=== PATIENT | male | born 1960 | race Caucasian/White ===

== ENCOUNTER 2023-11-29 20:14 | Emergency (ER) | payer OTHER, SELFPAY ==
[2023-11-29] VITALS (11 sets, daily range): BP systolic 106–140; BP diastolic 65–88; PULSE 47–56
[2023-11-29 20:30] LABS: % Basophils 1.1 % (0-2); % Eosinophils 5.5 % (0-6); % Immature Granulocytes 0.3 % (0-0.5); % Lymphocytes 30.3 % (20.5-51.1); % Monocytes 7.7 % (1.7-9.3); % Neutrophils 55.1 % (42.2-75.2); Absolute Basophils 0.1 10^3/uL (0-0.2); Absolute Eosinophils 0.3 10^3/uL (0-0.7); Absolute Lymphocytes 1.9 10^3/uL (1.2-3.4); Absolute Monocytes 0.5 10^3/uL (0.1-0.6); Absolute Neutrophils 3.4 10^3/uL (1.4-6.5); Hematocrit 36.4 % (39.0-52.0); Hemoglobin 11.6 g/dL (13.0-18.0); Mean Corp Hgb Conc. 31.9 g/dL (33.0-37.0); Mean Corpuscular Hgb 24.6 pg (27.0-31.0); Mean Corpuscular Volume 77.3 fL (80.0-94.0); Mean Platelet Volume 10.7 fL (7.4-10.4); Nucleated Red Blood Cells % 0 % (-); Platelet Count 219 10^3/uL (130-400); Red Blood Cell Count 4.71 10^6/uL (4.70-6.10); Red Cell Dist. Width 13.7 % (11.5-14.5); White Blood Cell Count 6.2 10^3/uL (4.8-10.8)
[2023-11-29 20:49] LABS: ALT (SGPT) 43 U/L (0-50); AST (SGOT) 32 U/L (17-59); Albumin 3.6 g/dl (3.5-5.0); Alkaline Phosphatase 50 U/L (38-126); Blood Urea Nitrogen 22 mg/dl (9-20); Calcium 8.8 mg/dl (8.4-10.2); Carbon Dioxide 26 mmol/L (22-30); Chloride 107 mmol/L (98-107); Estimated Creatinine Clearance 103 ml/min; Glucose 128 mg/dl (70-99); Potassium 4.2 mmol/L (3.5-5.1); Sodium 138 mmol/L (135-145); Total Bilirubin 0.7 mg/dl (0.2-1.3); Total Protein 5.8 g/dl (6.3-8.2); eGFR > 60.00
[2023-11-29 20:56] LABS: Troponin I < 0.012 ng/ml
--- NOTE | 2023-11-29 21:09 | ED.GENMED ---
History of Present Illness
General
Chief Complaint: Fainting/Passed Out
Source: patient and family ([place])
Exam Limitations: none
Time Seen by Provider: 11/29/23 20:57
History of Present Illness
History of Present Illness:
This is a 63 year old male that comes in by ambulance with c/o syncope. States that he went to watch his daughter in [place] in a cafe and it was hot. State that he was only there about 15-20min and he started to feel dizzy and hot and passed out.
State that he was standing and slowly went to the ground. Denies hitting his head. Daughter states that he was unconscious for seconds and that he was shaking. Daughter also states that he has a history of passing out before. Denies any fever,
chills, chest pain, SOB, abd pain, nausea, vomiting, diarrhea, headache, urinary burning.
Past History
Past History
ED Past Medical History: HTN and Psychiatric (Depression)
ED Past Surgical History: Orthopedic (Radio frequency ablation of Lumbar spine and Cervical spine) and Other (Sinus Surgery, )
Social History
Tobacco: Non-smoker
Alcohol: None
Drug: Marijuana
Personal: Single
Living: alone
Review of Systems
Review of Systems
All Other Systems: ROS reviewed and negative except as documented in HPI and ROS
Constitutional: Reports no symptoms; Denies fever or chills
EENT: Reports no symptoms
Respiratory: Reports no symptoms; Denies cough or trouble breathing
Cardiac: Reports no symptoms; Denies chest pain
ABD/GI: Reports no symptoms; Denies abdominal pain, nausea, vomiting or diarrhea
: Reports no symptoms; Denies dysuria, frequency or urgency
Musculoskeletal: Reports no symptoms
Skin: Reports no symptoms
Neurological: Reports dizzy; Denies headache
Psychiatric: Reports no symptoms
Phy Exam
General Physical Exam
General Presentation: no apparent distress
General age: appears stated age
General Skin: warm and dry
General Habitus: normal
General Mental: alert
General Hydration: dry mucous membranes
ENT Exam
ENT Exam: TM's normal, pharynx normal and neck supple
Eye Exam
Eye Exam: EOMI
Cardiovascular Exam
Cardiovascular Exam: no edema, no murmur, normal peripheral pulses and bradycardia
Pulmonary Exam
Pulmonary Exam: lungs clear, no respiratory distress, no rales, chest non tender, no crackles, no rhonchi, no wheezing and no cough
Gastrointestinal Exam
Gastrointestinal Exam: normal bowel sounds, non tender, soft, no organomegaly, no pulsatile mass and non distended
Musculoskeletal Exam
Musculoskeletal Exam: full ROM and no edema
Skin Exam
Skin Exam: normal color, warm/dry, no rash and no petechia
Psychiatric Exam
Psychiatric Exam: normal mood/affect
Course
Orders/Labs/Results
Orders:
Orders
11/29/23 20:22
Electrocardiogram (*1) Urgent
Reason for Study: Bradycardia / Tachycardia
EKG- Treatment ONCE
11/29/23 20:24
Complete Blood Count/With Diff Urgent
Comprehensive Metabolic Panel Urgent
Troponin I Urgent
11/29/23 21:08
Orthostatic VS- Treatment ONCE
0.9% Sodium Chloride 1000 ml [Nss] 1,000 ml IV BOLUS
Abnormal Lab Results
11/29/23
20:24
Hgb 11.6 L g/dL
(13.0-18.0)
Hct 36.4 L %
(39.0-52.0)
MCV 77.3 L fL
(80.0-94.0)
MCH 24.6 L pg
(27.0-31.0)
MCHC 31.9 L g/dL
(33.0-37.0)
MPV 10.7 H fL
(7.4-10.4)
BUN 22 H mg/dl
(9-20)
Glucose 128 H mg/dl
(70-99)
Total Protein 5.8 L g/dl
(6.3-8.2)
11/29/23 20:24
11/29/23 20:24
H/H slightly low. Anemic, Dehydration. Glucose nonfasting. Total protein low. Troponin <0.012,
Vital Signs
Initial and Last Documented VS:
Initial Vital Signs
Temp Pulse Resp BP
98.7 F 60 18 123/70
11/29/23 20:21 11/29/23 20:21 11/29/23 20:21 11/29/23 20:21
Last Documented Vital Signs
Temp Pulse Resp BP Pulse Ox
98.7 F 49 21 118/69 95
11/29/23 20:21 11/29/23 21:30 11/29/23 21:30 11/29/23 21:24 11/29/23 21:24
MDM/Problems Addressed
Differential Diagnosis Includes:
Dehydration. Orthostatic hypotension
MDM/Problems Addressed:
This is a 63 year old male that comes in with c/o syncope. Staes that he was in a cafe and it was hot and be became dizzy. States that he was standing and slowly fell to the floor.
Will check labs.
Back into see patient. Explained that his blood work shows some dehydration. His Troponin is normal. Explained that this may have been a combination of dehydrated, the heat and the increase on his Buprenorphine . Patient to increase his water intake
daily and may need to decrease the Buprenorphine. Patient to follow up with the family doctor. Return with any concerns.
Chronic conditions affecting care:
Syncope
Acute Exacerbation and/or Progression of Chronic Illness:
Syncope
*Pulse Oximetry
Patient hypoxic: no
*EKG
Interpreted by ED Provider?: Yes
Heart Rate: 48
Rate: bradycardiac
Rhythm: sinus
[place]: normal axis
Interval: normal interval
QRS Pattern: normal QRS
Ischemia: no ischemia
*Spread Cutter Interpretation
Rate: bradycardiac
Heart Rate: 48
Rhythm: sinus
*Critical Care Note
Total Time (30-74mins, 75-104mins- exclusive of procedures): Not Applicable
ED Attending Note
-
Portions of this chart may have been created with voice recognition software.� Occasional wrong word or��sound alike� substitutions may have occurred due to the inherent limitations of voice recognition software.
Discharge Plan
Departure
Patient Disposition: Home (Routine Discharge)
Date of Disposition: 11/29/23
Time of Disposition: 22:31
Patient with high blood pressure during this ER visit?: No
Condition: Good
Covid-19: Not Applicable
Discharge Problem:
Syncope, Dehydration
Instructions: Syncope (Fainting) (DC), Dehydration, Adult ED
Referrals:
Estela Rust DO [Family Provider] - Follow up in 2-3 days
Activity Restrictions/Additional Instructions:
As discussed, your blood work shows Dehydrated and little Anemia. This may be a combination of the heat, dehydrated and the increased on your Buprenorphine. Please follow up with the family doctor for further evaluation. Please increase your water
intake to 8-8oz glasses daily. IF YOU HAVE ANY OTHER CONCERNS PLEASE RETURN TO THE EMERGENCY ROOM.
Interventions
Interventions:
*Risk Screen - Suicide Last Done: 11/29/23 20:19
*General Assessment Last Done: 11/29/23 20:19
*Neglect/Abuse Screening Last Done: 11/29/23 20:19
*ED COVID-19 Vaccine History Last Done: 11/29/23 20:19
ED- Cardiac Assessment Last Done: 11/29/23 20:23
ED- Neurological Assessment Last Done: 11/29/23 20:23
Discharge Date and Time
Print Language: [id number]
[2023-11-29] MEDS: NSS 1000 IV (21:23)
== END 2023-11-29 23:00 | disposition home or self-care (01) ==
LOC: EMR 20:14
PROVIDERS: Student in an Organized Health Care Education/Training Program; EMERGENCY PHYSICIAN Student in an Organized Health Care Education/Training Program; FAMILY PHYSICIAN Family Medicine
DX: R55 Syncope and collapse (principal); E86.0 Dehydration
CPT/HCPCS: 99284; 96360; 80053; 84484; 85025; 93005

== ENCOUNTER → 2024-07-15 15:52 | Outpatient (REF) | payer MEDICARE, SELFPAY | LOC: RAD 15:52 | PROVIDERS: ATTENDING PHYSICIAN Family Medicine | DX: R93.9 Diagnostic imaging inconclusive due to excess body fat of patient (principal); R39.14 Feeling of incomplete bladder emptying; N40.1 Benign prostatic hyperplasia with lower urinary tract symptoms; R82.998 Other abnormal findings in urine | CPT/HCPCS: 76770 ==

== ENCOUNTER → 2024-11-01 16:09 | Outpatient (REF) | payer MEDICARE, SELFPAY | LOC: RCS 16:09 | PROVIDERS: ATTENDING PHYSICIAN Internal Medicine; FAMILY PHYSICIAN Family Medicine | DX: R55 Syncope and collapse (principal) | CPT/HCPCS: 93306 ==

== ENCOUNTER → 2025-03-31 06:44 | Outpatient (REF) | payer MEDICARE, OTHER, SELFPAY ==
[2025-03-31 09:24] LABS: Hematocrit 42.7 % (39.0-52.0); Hemoglobin 13.3 g/dL (13.0-18.0); Mean Corp Hgb Conc. 31.1 g/dL (33.0-37.0); Mean Corpuscular Volume 80.6 fL (80.0-94.0); Platelet Count 287 10^3/uL (130-400); Red Cell Dist. Width 14.5 % (11.5-14.5)
[2025-03-31 10:25] LABS: Blood Urea Nitrogen 23 mg/dl (9-20); Calcium 9.7 mg/dl (8.4-10.2); Carbon Dioxide 31 mmol/L (22-30); Chloride 102 mmol/L (98-107); Glucose 91 mg/dl (70-99); Potassium 4.5 mmol/L (3.5-5.1); Sodium 136 mmol/L (135-145); eGFR > 60.00
== END ==
LOC: SDSPAT 06:44
PROVIDERS: ATTENDING PHYSICIAN Specialist; FAMILY PHYSICIAN Family Medicine
DX: Z01.818 Encounter for other preprocedural examination (principal)
CPT/HCPCS: 80048; 85027; 93005

== ENCOUNTER 2025-04-07 05:49 | Day surgery (SDC) | payer MEDICARE, OTHER, SELFPAY ==
[2025-03-31 13:45] VITALS: BMI 21.0
[2025-04-07] VITALS (14 sets, daily range): BP systolic 112–154; BP diastolic 77–97; BMI 21.0
[2025-04-07] MEDS: NORMOSOL-R/PLASMALYTE-A 1000 IV (06:30)
[2025-04-07] MEDS: DILAUDID 0.25 MG IV ×2 (09:05→09:15)
--- NOTE | 2025-04-07 10:00 | PTCARENOTE ---
report received from pacu. aaox3. vss. [address]f [address] Lee draining blood tinge/punch. 3l irrigation solution running adequately. minimal clots noted in tubing. traction removed per order. pt medicated per pain scale. (see mar). pt updated on plan
of care. call lorenzo in reach. will monitor.
[2025-04-07] MEDS: ZOFRAN 4 MG IV (11:18)
[2025-04-07] MEDS: PERCOCET 5/325 1 TABLET PO ×3 (11:19→20:43)
[2025-04-07] MEDS: COLACE 100 MG PO ×2 (11:51→16:22)
[2025-04-07] MEDS: CELEBREX 200 MG PO (19:23)
[2025-04-07] MEDS: VALIUM INJECTION 5 MG IV (22:22)
[2025-04-08 03:00] VITALS: BP 119/76
[2025-04-08 07:00] VITALS: BP 128/82
--- NOTE | 2025-04-08 07:40 | W.PN.URO.CBU ---
Today's Communication / Plan
-
Voiding trial this AM
PVR prior to discharge to confirm emptying
D/c home later this morning after VT
D/w RN.
Assessment / Plan
-
BPH w/ voiding dysfunction
04/07: s/p TURP
Diagnosis
-
Date of Service: April 08, 2025
-
Patient Diagnosis:
BPH w/ voiding dysfunction
Post Op Day:
04/07: s/p TURP
Subjective
-
Doing well.
Lee catheter removed early AM.
Voided x1 w/ moderate dysuria.
Objective
-
Vital Signs
Temp Pulse Resp BP Pulse Ox
98.8 F 57 16 128/82 98
04/08/25 07:00 04/08/25 07:00 04/08/25 07:00 04/08/25 07:00 04/08/25 07:00
Intake and Output
04/07/25 04/08/25 04/09/25
06:59 06:59 06:59
Intake Total 1958
Output Total 4000 / 4000
Balance -2040 / -2040
Intake:
Oral fluids 1858
IV fluids (Total) 100 / 100
Normosal 100 / 100
Output:
Urine, Voided 600 / 600
True Urine Output from [facility] 3400 / 3400
Physical Exam
-
General - well developed, well nourished, no acute distress
Abdomen - soft, non-tender
- normal
Neuro - AOx3, no motor deficits
Extremities - no clubbing, no cyanosis, no edema
Care Review
Data Reviewed
Discussed with: Nursing
Total Time Spent with Patient (in minutes): 25
[2025-04-08] MEDS: COLACE 100 MG PO (08:13)
[2025-04-08] MEDS: NEURONTIN 600 MG PO (08:14)
[2025-04-08] MEDS: VASOTEC 20 MG PO (08:14)
[2025-04-08] MEDS: CELEBREX 200 MG PO (08:14)
[2025-04-08] MEDS: WELLBUTRIN XL (24 hour extended release) 150 MG PO (08:14)
[2025-04-08] MEDS: FLOMAX 0.8 MG PO (08:14)
--- NOTE | 2025-04-08 08:19 | W.DS.TRANS ---
DC Summary - [employer]
-
Discharge Instructions:
Sleep Apnea Risk Intermediate
Discharge Diagnosis/Procedures BPH with Voiding Dysfunction s/p TURP
Diet No restrictions
Activity No strenuous activity
Driving Restrictions As prior to admission
Bathing Restrictions None
Instructions:
Stand-Alone Forms:
Changes to Home Medications: No
Discharge Medications:
DC Medications w/original date entered in [facility]
bupropion HCl 150 mg 24 hr tablet, extended release (Wellbutrin XL) 150 mg PO DAILY 03/31/25
celecoxib 200 mg capsule (Celebrex) 200 mg PO BID 03/31/25
enalapril maleate 20 mg tablet 20 mg PO DAILY 03/31/25
gabapentin 600 mg tablet 600 mg PO DAILY 03/31/25
methenam 118 mg-m.blue 10 mg-s.phos 40.8 mg-p.salic 36 mg-hyos capsule (Uro-MP) 1 tab PO QID PRN dysuria #30 caps 04/07/25
Home Medication Changes
Pending Results: Yes
Additional Pending Results:
surgical pathology
Total time spent discharging patient (in min): 45
[2025-04-08 11:00] VITALS: BP 135/77
--- NOTE | 2025-04-08 12:42 | CM ---
Pt left without seeing by CM
== END 2025-04-08 11:24 | disposition home or self-care (01) ==
LOC: SDS 05:49
PROVIDERS: ATTENDING PHYSICIAN Specialist; FAMILY PHYSICIAN Family Medicine
DX: N40.1 Benign prostatic hyperplasia with lower urinary tract symptoms (principal); R39.12 Poor urinary stream; N41.0 Acute prostatitis; N41.1 Chronic prostatitis
CPT/HCPCS: 52601; 87070; 88305; 88344